=== PATIENT | female | born 1970 | race Caucasian/White ===

== ENCOUNTER 2025-08-15 17:46 | Emergency (ER) | payer OTHER ==
--- NOTE | 2025-08-15 18:32 | RAD REPORT ---
EXAMINATION: Ct Stroke Brain Wo Cont CLINICAL INDICATION: Female, 55 years old.STROKE ALERT TECHNIQUE: Axial CT images from the skull base to the vertex without intravenous contrast. Coronal an d sagittal reformatted images were created from the data set. One or more of the following dose reduction techniques were used: Automated exposure control, adjustment of the mA and/or kV according to patient size, and/or iterative reconstruction. Unless otherwise specified, incidental findings do not require dedicated imaging follow-up. [id number]. COMPARISON: 05/21/2025 FINDINGS: INTRACRANIAL: Evolving, now chronic left frontal lobe cortical infarct. No acute large vascular hali tory infarct. No hydrocephalus. No mass effect or midline shift. No significant white matter disease. VASCULATURE: No visualized abnormalities in the arteries or dural venous sinuses. SCALP/SKULL: No calvarial fracture identified. No acute soft tissue abnormality. SINUSES: The visualized paranasal sinuses are mostly clear. No significant mastoid fluid. IMPRESSION: No acute intracranial abnormality. Evolving, now chronic left frontal lobe cortical infarct. No new i nfarcts identified. The findings were communicated to Paras Baker on 08/15/2025 6:29 PM.
[2025-08-15 18:40] LABS: Absolute Lymphocytes (CBC) 2.0 K/uL (0.7-4.9); Hematocrit 40.9 % (36.0-45.0); Hemoglobin 14.1 g/dL (12.0-15.0); MCH 32.4 pg (27.0-35.0); MCHC 34.4 g/dL (32.0-36.0); MCV 94.2 fL (80-100); MPV 8.1 fL (7.6-11.3); Nucleated RBC Absolute Count 0.0 (0-0); Nucleated Red Blood Cells % 0.1 % (0-0); RBC Red Blood Cell Count 4.35 M/uL (3.86-4.86); White Blood Count 6.40 thou/uL (4.3-10.9)
[2025-08-15] MEDS ORDERED: FOLIC ACID 5 MG/ML VIAL ONE (18:45)
--- NOTE | 2025-08-15 18:45 | RAD REPORT ---
EXAMINATION: Neck Angio CLINICAL INDICATION: Female, 55 years old. NUMBNESS TECHNIQUE: Axial CT images were obtained from the aortic arch to the skull base after intravenous con trast utilizing angiographic protocol with 3D post-processing (maximum intensity projection images, volume rendered images and/or shaded surface rendered images). One or more of the following dose redu ction techniques were used: Automated exposure control, adjustment of the mA and/or kV according to patient size, and/or iterative reconstruction. Unless otherwise specified, incidental findings do not require dedicated imaging follow-up. [id number]. NASCET criteria used. Mild 0-49% stenosis Moderate 50-69% stenosis Severe 70-99% stenosis COMPARISON: 05/21/2025 FINDINGS: AORTA: Normal RIGHT: - CCA: No flow limiting stenosis (>= 50%). No dissection. - ICA: Atherosclerotic changes but no flow limiting stenosis. - ECA: No flow limiting stenosis (>= 50%). No dissection. LEFT: - CCA: No flow limiting stenosis (>= 50%). No dissection. Patent left CCA/ICA stent - ICA: No flow limiting stenosis (>= 50%). No dissection. Patent left CCA/ICA stent - ECA: No flow limiting stenosis (>= 50%). No dissection. VERTEBRAL: Left dominant. Both patent. SOFT TISSUE: No significant neck soft tissue abnormalities. The visualized lung apices are clear. 3D images confirm these findings. IMPRESSION: No arterial dissection or stenosis identified within the neck. Patent left carotid stent.
[2025-08-15] MEDS ORDERED: NA CHLORIDE 0.9% 1,000 ML ONE (18:46)
[2025-08-15 18:53] LABS: PT Prothrombin Time 10.5 SECONDS (10-13.0); PTT, Activated Partial Thromb 32.7 SECONDS (27.2-37.4); Protime INR 0.93
--- NOTE | 2025-08-15 18:53 | RAD REPORT ---
EXAMINATION: Head angio CLINICAL INDICATION: Female, 55 years old. NUMBNESS TECHNIQUE: Axial CT images were obtained through the head after intravenous contrast utilizing angiog raphic protocol with 3D post-processing (maximum intensity projection images, volume rendered images and/or shaded surface rendered images). One or more of the following dose reduction technique s were used: Automated exposure control, adjustment of the mA and/or kV according to patient size, and/or iterative reconstruction. Unless otherwise specified, incidental findings do not require dedic ated imaging follow-up. COMPARISON: 05/21/2025 FINDINGS: RIGHT: ICA: No aneurysm, stenosis, or occlusion. NIXON: No aneurysm, stenosis, or occlusion. MCA: No aneurysm, stenosis, or occlusion. GLASS EMBOSSER: No aneurysm, stenosis, or occlusion. LEFT: ICA: No aneurysm, stenosis, or occlusion. NIXON: No aneurysm, stenosis, or occlusion. MCA: High-grade focal stenosis though patent anterior branch of the left MCA (M2 segment). GLASS EMBOSSER: No aneurysm, stenosis, or occlusion. Vertebrobasilar: Left dominant vertebral artery. Patent basilar artery. 3D images confirm these findings. IMPRESSION: High-grade proximal stenosis of the left MCA inferior division anterior branch, proximal M2 segment. This was previously occluded but now this appears stenotic.. No large vessel occlusion or aneurysm.
[2025-08-15 19:03] LABS: ALT/SGPT 40 U/L (13-56); AST/SGOT 25 U/L (15-37); Albumin 3.4 g/dL (3.4-5.0); Albumin/Globulin Ratio 1.0 (1.1-1.8); Alkaline Phosphatase 154 U/L (45-117); Anion Gap 6.8 mEq/L (5.0-15.0); BUN Blood Urea Nitrogen 12 mg/dL (7-18); Globulin 3.5 g/dL (2.3-3.5); Glucose Level 112 mg/dL (74-106); Magnesium 2.1 mg/dL (1.6-2.4); Potassium 3.8 mEq/L (3.5-5.1); Troponin High Sensitivity 4.7 pg/mL (<58.9)
[2025-08-15 19:04] LABS: Bilirubin Indirect, Calculated 0.2 mg/dL (0.2-0.8)
--- NOTE | 2025-08-15 19:04 | RAD REPORT ---
EXAM: Chest Single View HISTORY: 55 years Female right side facial numbness COMPARISON: 05/21/2025 FINDINGS: LUNGS/PLEURA: The lungs are clear. No pleural effusions or pneumothorax. No pulmonary edema. CARDIAC/MEDIASTINUM: The cardiac silhouette is within normal limits. UPPER ABDOMEN: No significant abnormality. BONES: No acute abnormality. LINES/TUBES/OTHER: N/A IMPRESSION: No evidence of acute cardiopulmonary disease.
--- NOTE | 2025-08-15 20:20 | ER ---
Nurse's Notes [facility] Name: Sanam Haider Age: 55 yrs Sex: Female : 1970 Arrival Date: 08/15/2025 Time: 17:46 Bed 13 Private MD: Diagnosis: Paresthesia of skin;Dizziness and giddiness Presentation: 08/15 18:29 Chief complaint: Patient states: RT FACIAL NUMBNESS, RT ARM NUMBNESS AND DIZZINESS THAT dd2 STARTED AT 10PM LAST NIGHT, WENT AWAY. OCCURRED AGAIN TODAY AT NOON AND 4:30 PM. PT REPORTS CVA IN MAY WITH STENTS PLACED IN LT CAROTID. Coronavirus screen: At this time, the client does not indicate any symptoms associated with coronavirus-19. Ebola Screen: No symptoms or risks identified at this time. Initial Sepsis Screen: Does the patient meet any 2 criteria? No. Patient's initial sepsis screen is negative. Does the patient have a suspected source of infection? No. Patient's initial sepsis screen is negative. Risk Assessment: Do you want to hurt yourself or someone else? Patient reports no desire to harm self or others. Onset of symptoms was August 14, 2025 at 22:00. 18:29 Method Of Arrival: Ambulatory dd2 18:29 Acuity: YESSI 2 dd2 Triage Assessment: 18:29 General: Appears uncomfortable, Behavior is calm, cooperative, appropriate for age. dd2 Pain: Complains of pain in HEAD. 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 - Infectious Disease History:: Denies. - Social history:: Smoking status: unknown. Screenin:10 [facility] ED Fall Risk Assessment (Adult) History of falling in the last 3 months, af3 including since admission No falls in past 3 months (0 pts) Confusion or Disorientation No (0 pts) Intoxicated or Sedated No (0 pts) Impaired Gait No (0 pts) Mobility Assist Device Used No (0 pt) Altered Elimination No (0 pt) Score/Fall Risk Level 0 - 2 = Low Risk Oriented to surroundings, Maintained a safe environment, Educated pt \T\ family on fall prevention, incl call for assistance when getting out of bed. Abuse screen: Denies threats or abuse. Denies injuries from another. Nutritional screening: No deficits noted. Tuberculosis screening: No symptoms or risk factors identified. Assessment: 18:07 General: Appears in no apparent distress. comfortable, well groomed, well developed, af3 Behavior is calm, cooperative, appropriate for age. 18:07 Pain: Denies pain. af3 18:07 Neuro: Level of Consciousness is awake, alert, obeys commands, Oriented to person, af3 place, time, situation, Appropriate for age. Neuro: Reports numbness in face-right side. Cardiovascular: Patient's skin is warm and dry. Respiratory: Airway is patent Respiratory effort is even, unlabored, Respiratory pattern is regular, symmetrical. 19:15 Pain: Denies pain. Neuro: Level of Consciousness is awake, alert, obeys commands, ss12 Oriented to person, place, time, situation, Denies weakness blurred vision numbness headache. Cardiovascular: Denies chest pain, Capillary refill < 3 seconds Patient's skin is warm and dry. Respiratory: No deficits noted. Airway is patent Respiratory effort is even, unlabored, Respiratory pattern is regular, symmetrical. GI: No deficits noted. No signs and/or symptoms were reported involving the gastrointestinal system. : No deficits noted. No signs and/or symptoms were reported regarding the genitourinary system. EENT: No deficits noted. No signs and/or symptoms were reported regarding the EENT system. 19:15 General: Appears in no apparent distress. comfortable, Behavior is calm, cooperative, ss12 quiet. Derm: No deficits noted. No signs and/or symptoms reported regarding the dermatologic system. Skin is intact, Skin is dry, Skin is pink, warm \T\ dry. normal. 19:45 Reassessment: Patient appears in no apparent distress at this time. No changes from ss12 previously documented assessment. Patient is alert, oriented x 3, equal unlabored respirations, skin warm/dry/pink. Neuro: Level of Consciousness is awake, alert, obeys commands, Oriented to person, place, time, situation, Appropriate for age Denies weakness blurred vision numbness headache. 20:50 Reassessment: Pt refused to be hospitalized and the labs for lipid profile and ss12 magnesium ordered by hospitalist were refused by the patient. Vital Signs: 18:29 BP 101 / 67; Pulse 58; Resp 16; Temp 98.2; Pulse Ox 98% on R/A; dd2 19:12 BP 100 / 58; Pulse 71; Resp 18; Pulse Ox 98% on R/A; af3 19:15 BP 103 / 77; Pulse 64; Resp 16 S; Pulse Ox 98% on R/A; ss12 19:38 BP 103 / 65; Pulse 60; Resp 16 S; Pulse Ox 98% on R/A; ss12 20:00 BP 105 / 74; Pulse 51; Resp 16; Pulse Ox 96% on R/A; ss12 20:30 BP 128 / 84; Pulse 58; Resp 16; Pulse Ox 98% on R/A; ss12 Hatch Coma Score: 19:15 Eye Response: spontaneous(4). Motor Response: obeys commands(6). Verbal Response: ss12 oriented(5). Total: 15. 19:38 Eye Response: spontaneous(4). Motor Response: obeys commands(6). Verbal Response: ss12 oriented(5). Total: 15. NIH Stroke Scale Scores: 18:20 NIHSS Score: 1 cp ED Course: 17:48 Patient arrived in ED. mr 18:01 [facility] cp 18:02 Colette Shetty MD is Attending Physician. cp 18:07 Silvia No, IVORY is Primary Nurse. af3 18:07 Patient has correct armband on for positive identification. Bed in low position. Call af3 light in reach. Provided Education on: call light use . 18:07 No provider procedures requiring assistance completed. af3 18:24 CT Stroke Brain w/o Contrast In Process Unspecified. EDMS 18:29 Arm band placed on right wrist. dd2 18:30 CT Head Angio In Process Unspecified. EDMS 18:30 CT Neck Angio In Process Unspecified. EDMS 18:31 Triage completed. dd2 18:32 Inserted saline lock: 22 gauge in left antecubital area, using aseptic technique. Blood dd2 collected. Flushed with 10 mL NS. 18:48 Stroke CXR 1 View In Process Unspecified. EDMS 20:19 Jayesh Pichardo, RN is Hospitalizing Provider. cp 20:55 IV discontinued, intact, bleeding controlled, No redness/swelling at site. Pressure ss12 dressing applied. Administered Medications: 18:52 Drug: NS 0.9% IV 1000 ml IV at 1 bolus Per protocol; to be given as a bolus over 60 af3 minutes Route: IV; Rate: 1 bolus; Site: left antecubital; 20:00 Follow up: IV Status: Completed infusion; IV Intake: 1000ml [facility] 18:52 Drug: foLIC Acid IVPB 1 mg IVPB once Route: IVPB; Site: left antecubital; af3 20:57 Follow up: Response: No adverse reaction; IV Status: Completed infusion 12 Medication: 18:07 VIS not applicable for this client. af3 Intake: 20:00 IV: 1000ml; Total: 1000ml. 12 Outcome: 20:19 Decision to Hospitalize by Provider. cp 20:34 Discharge ordered by MD. cp 20:55 Discharged to home ambulatory, [facility] 20:55 Condition: stable 20:55 Discharge instructions given to patient, family, Instructed on discharge instructions, follow up and referral plans. Demonstrated understanding of instructions, follow-up care, 20:56 Patient left the ED. 12 NIH Stroke Scale - NIH Stroke Score Date: 08/15/2025 Time: 18:20 Total Score = 1 10. Dysarthria (speech clarity - read or repeat words) - 0(Normal) 11. Extinction and Inattention (visual/tactile/auditory/spatial/personal) - 0(No abnormality) 1a. Level of Consciousness (LOC) - 0(Alert) 1b. Level of Consciousness (LOC) (Month \T\ Age) - 0(Both) 1c. LOC Commands (Open \T\ Closes Eyes/Employee Benefits Coordinator) - 0(Both) 2. Best Gaze (Lateral Gaze Paresis) - 0(Normal) 3. Visual Field Loss - 0(No visual loss) 4. Facial Palsy - 0(Normal) 5a. Left Arm: Motor (10-second hold) - 0(No drift) 5b. Right Arm: Motor (10-second hold) - 0(No drift) 6a. Left Leg: Motor (5-second hold - always test supine) - 0(No drift) 6b. Right Leg: Motor (5-second hold - always test supine) - 0(No drift) 7. Limb Ataxia (finger/nose \T\ heel/maynard - test with eyes open) - 0(Absent) 8. Sensory Loss (pinprick arms/legs/face) - 1(Mild to moderate loss) 9. Best Language: Aphasia (description/naming/reading) - 0(No aphasia) Initials: cp Addendum: 18:58 Addendum: Other [place] Swallow Evaluation completed at 1858, pt passed. Swallowed kb3 without issue. notified. Signatures: Dispatcher [employer] EDMS Neha Jara, Reg Reg mr Baker Paras, Kaylie Kirby PA-C, cp, RN RN kb3 Silvia No RN RN af3 WILLIAM TOLEDO RN RN dd2 Kolby Jarrett RN RN ss12 Corrections: (The following items were deleted from the chart) 20:35 20:33 Neuro: Level of Consciousness is awake, alert, obeys commands, Oriented ss12 to person, place, time, situation, Denies weakness blurred vision numbness headache ss12 20:37 20:33 General: Appears in no apparent distress. comfortable, Behavior is calm, ss12 cooperative, quiet, ss12 20:37 20:33 Pain: Denies pain. ss12 ss12 20:37 20:33 Neuro: Level of Consciousness is awake, alert, obeys commands, Oriented ss12 to person, place, time, situation, Denies weakness blurred vision numbness headache ss12 20:37 20:33 Cardiovascular: Denies chest pain, Capillary refill < 3 seconds Patient's ss12 skin is warm and dry. ss12 20:37 20:33 Respiratory: No deficits noted. Airway is patent Respiratory effort is ss12 even, unlabored, Respiratory pattern is regular, symmetrical, ss12 20:37 20:33 GI: No deficits noted. No signs and/or symptoms were reported involving ss12 the gastrointestinal system. ss12 20:37 20:33 : No deficits noted. No signs and/or symptoms were reported regarding ss12 the genitourinary system. ss12 20:37 20:33 EENT: No deficits noted. No signs and/or symptoms were reported regarding ss12 the EENT system. ss12 20:37 20:33 Derm: No deficits noted. No signs and/or symptoms reported regarding the ss12 dermatologic system. Skin is intact, Skin is dry, Skin is pink, warm \T\ dry. normal, ss12 20:58 19:30 Response: No adverse reaction ss12 ss12 08/16 00:27 00:26 Reassessment: ss12 ss12
--- NOTE | 2025-08-15 20:20 | EDPHYS ---
Physician Documentation [facility] Name: Sanam Haider Age: 55 yrs Sex: Female : 1970 Arrival Date: 08/15/2025 Time: 17:46 Bed 13 Private MD: ED Physician Colette Shetty HPI: 08/15 18:10 This 55 yrs old Female presents to ER via Unassigned with complaints of Numbness Of cp Face, Numbness Of Arm, Dizziness. 18:10 The patient's problem is reported as right side of face. Onset: The symptoms/episode cp began/occurred today, 1630. Duration: The episode is continuous. 18:10 Context: occurred while the patient was driving. Associated signs and symptoms: cp Pertinent positives: dizziness, Pertinent negatives: abdominal pain, chest pain. Severity of symptoms: in the emergency department the symptoms have improved mildly. 18:10 Patient is a 55-year-old female with past medical history significant for hypertension. cp Patient also reports having a stroke here in May 2025. Patient presents to the emergency department and reports that last night around 10:00 she started having some dizziness felt the right side of her face going numb. This persisted but she went to bed and when she woke up this morning she felt normal. Patient reports later on in the morning at about 10:00 she started having some right-sided facial numbness that lasted about 1 to 2 hours and resolved. She reports while driving home after work at about 1630 she started having right sided facial numbness so she proceeded to the emergency department. 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 - Infectious Disease History:: Denies. - Social history:: Smoking status: unknown. ROS: 18:15 Neuro: Positive for dizziness, right side facial numbness, Negative for altered mental cp status, gait disturbance, headache, syncope, near syncope, weakness, 18:15 Eyes: Negative for injury, pain, redness, and discharge, cp 18:15 Constitutional: Negative for body aches, chills, fever, poor PO intake, 18:15 Cardiovascular: Negative for chest pain, 18:15 Abdomen/GI: Negative for abdominal pain, vomiting, diarrhea, constipation, 18:15 All other systems are negative, Exam: 18:20 Constitutional: The patient appears in no acute distress, alert, awake, cp non-diaphoretic, non-toxic, well developed, well nourished, 18:20 Head/face: Exam is negative for obvious evidence of injury or deformity, swelling, cp tenderness, 18:20 Eyes: Periorbital structures: appear normal, Pupils: equal, round, and reactive to light and accomodation, Extraocular movements: intact throughout, Conjunctiva: normal, no exudate, no injection, Sclera: no appreciated abnormality, Lids and lashes: appear normal, bilaterally, 18:20 ENT: External ear(s): Nose: is normal, Mouth: Lips: moist, Oral mucosa: moist, Posterior pharynx: Airway: no evidence of obstruction, patent, 18:20 Neck: ROM/movement: pain, is not appreciated, limited range of motion, is not appreciated, 18:20 Chest/axilla: Inspection: normal, 18:20 Cardiovascular: Rate: bradycardic, Rhythm: regular, Edema: is not appreciated, JVD: is not appreciated, 18:20 Respiratory: the patient does not display signs of respiratory distress, Respirations: normal, no use of accessory muscles, no retractions, labored breathing, is not present, Breath sounds: are clear throughout, no decreased breath sounds, no stridor, no wheezing, 18:20 Abdomen/GI: Inspection: abdomen appears normal, Palpation: abdomen is soft and non-tender, in all quadrants, 18:20 Back: pain, is absent, ROM is normal, 18:20 Neuro: Orientation: to person, place \T\ time. Mentation: is normal, Motor: moves all fours, strength is normal, Sensation: numbness, that is mild, of the right side of face, 18:41 ECG was reviewed by the Attending Physician. cp 19:07 Radiologist reports: no acute findings cp Vital Signs: 18:29 BP 101 / 67; Pulse 58; Resp 16; Temp 98.2; Pulse Ox 98% on R/A; dd2 19:12 BP 100 / 58; Pulse 71; Resp 18; Pulse Ox 98% on R/A; af3 19:15 BP 103 / 77; Pulse 64; Resp 16 S; Pulse Ox 98% on R/A; ss12 19:38 BP 103 / 65; Pulse 60; Resp 16 S; Pulse Ox 98% on R/A; ss12 20:00 BP 105 / 74; Pulse 51; Resp 16; Pulse Ox 96% on R/A; ss12 20:30 BP 128 / 84; Pulse 58; Resp 16; Pulse Ox 98% on R/A; ss12 NIH Stroke Scale Scores: 18:20 NIHSS Score: 1 Farshad Coma Score: 19:15 Eye Response: spontaneous(4). Motor Response: obeys commands(6). Verbal Response: ss12 oriented(5). Total: 15. 19:38 Eye Response: spontaneous(4). Motor Response: obeys commands(6). Verbal Response: ss12 oriented(5). Total: 15. MDM: 18:02 Medical Screening Exam initiated 18:30 Differential diagnosis: CVA, TIA, metabolic disorder, drug effects. 18:39 ED course: Consult with Dr. Song who does not recommend TNK at this time. Will cp consult and recommends admission. Recommends fluid bolus, folic acid and dual antiplatelet therapy. 19:10 Data reviewed: vital signs, nurses notes, lab test result(s), EKG, radiologic studies, cp CT scan, plain films, I have discussed the patient's presentation/case with the attending Emergency Department Physician; and as a result, I will admit patient. 19:10 Management of patient was discussed with the following: Hospitalist: MR Britozenon PRINCE consulted for admission and agrees after discussion. 20:34 I considered the following discharge prescriptions or medication management in the emergency department Medications were administered in the Emergency Department. See JAN. 20:34 Independent interpretation of the following test(s) in the Emergency Department EKG: See my EKG interpretation above X-Ray: My interpretation is chest xray negative for infiltrates. Counseling: I had a detailed discussion with the patient and/or guardian regarding the historical points, exam findings, and any diagnostic results supporting the discharge/admit diagnosis, lab results, radiology results, the need for further work-up and treatment in the hospital. Response to treatment: the patient's symptoms have resolved after treatment, numbness resolved. Refusal of service: The patient/guardian displays adequate decision making capability and despite a detailed discussion of alternatives, benefits, risks, and consequences refuses: Admission to the hospital for further work-up and treatment. ED course: Patient requesting discharge to home after discussion of today's testing and recommendation to admission. Patient understands she can return at anytime for reevaluation. 08/15 18:06 Order name: Basic Metabolic Panel; Complete Time: 19:05 cp 08/15 19:05 Interpretation: Normal except: CL 110; GLUC 112. cp 08/15 18:06 Order name: CBC with Diff; Complete Time: 19:05 cp 08/15 18:06 Order name: Hepatic Function; Complete Time: 19:05 cp 08/15 19:06 Interpretation: Normal except: ALK 154; A/G 1.0. cp 08/15 18:06 Order name: High Sensitivity Troponin; Complete Time: 19:05 cp 08/15 18:06 Order name: Magnesium; Complete Time: 19:05 cp 08/15 18:06 Order name: Protime (+inr); Complete Time: 19:05 cp 08/15 18:06 Order name: Ptt, Activated; Complete Time: 19:05 cp 08/15 18:48 Order name: Glucose, Ancillary Testing; Complete Time: 19:05 EDMS 08/15 18:06 Order name: CT Head Angio; Complete Time: 19:05 cp 08/15 18:06 Order name: CT Neck Angio; Complete Time: 19:05 cp 08/15 18:06 Order name: CT Stroke Brain w/o Contrast; Complete Time: 19:05 cp 08/15 18:06 Order name: Stroke CXR 1 View; Complete Time: 19:05 cp 08/15 18:06 Order name: EKG; Complete Time: 18:07 cp 08/15 18:06 Order name: Accucheck; Complete Time: 18:38 cp 08/15 18:06 Order name: Cardiac monitoring; Complete Time: 18:38 cp 08/15 18:06 Order name: EKG - Nurse/Tech; Complete Time: 18:38 cp 08/15 18:06 Order name: IV Saline Lock; Complete Time: 18:38 cp 08/15 18:06 Order name: Labs collected and sent; Complete Time: 18:38 cp 08/15 18:06 Order name: NPO; Complete Time: 18:38 cp 08/15 18:06 Order name: O2 Per Protocol; Complete Time: 18:38 cp 08/15 18:06 Order name: O2 Sat Monitoring; Complete Time: 18:38 cp 08/15 18:06 Order name: Stroke Swallow Screen; Complete Time: 18:58 cp EC:41 Rate is 66 beats/min. Rhythm is regular. CA interval is normal. QRS interval is normal. cp QT interval is normal. T waves are Inverted in lead aVR. Interpreted by me. Reviewed by me. Administered Medications: 18:52 Drug: NS 0.9% IV 1000 ml IV at 1 bolus Per protocol; to be given as a bolus over 60 af3 minutes Route: IV; Rate: 1 bolus; Site: left antecubital; 20:00 Follow up: IV Status: Completed infusion; IV Intake: 1000ml ss12 18:52 Drug: foLIC Acid IVPB 1 mg IVPB once Route: IVPB; Site: left antecubital; af3 20:57 Follow up: Response: No adverse reaction; IV Status: Completed infusion ss12 Disposition: 08/16 19:11 Chart complete. cp Disposition Summary: 08/15/25 20:34 Discharge Ordered Notes: Location: Home(08/15/25 20:34) cp Problem: new(08/15/25 20:34) cp Symptoms: have improved(08/15/25 20:34) cp Condition: Stable(08/15/25 20:34) cp Diagnosis - Paresthesia of skin(08/15/25 20:34) cp - Dizziness and giddiness(08/15/25 20:34) cp Followup: cp - With: Private Physician - When: 2 - 3 days - Reason: Recheck today's complaints Discharge Instructions: - Discharge Summary Sheet cp - Dizziness cp - Paresthesia cp - Ischemic Stroke cp - Transient Ischemic Attack cp - Vertigo cp - Aspirin and Your Heart cp Forms: - Medication Reconciliation Form cp - Antibiotic Education cp - Prescription Opioid Use cp - Patient Portal Instructions cp - Leadership Thank You Letter cp Critical care time excluding procedures: 19:11 Critical care time: Bedside Care: 10 minutes, Consultation: 25 minutes, Family cp Intervention: 7 minutes. Total time: 42 minutes NIH Stroke Scale - NIH Stroke Score Date: 08/15/2025 Time: 18:20 Total Score = 1 10. Dysarthria (speech clarity - read or repeat words) - 0(Normal) 11. Extinction and Inattention (visual/tactile/auditory/spatial/personal) - 0(No abnormality) 1a. Level of Consciousness (LOC) - 0(Alert) 1b. Level of Consciousness (LOC) (Month \T\ Age) - 0(Both) 1c. LOC Commands (Open \T\ Closes Eyes/Client Technical Support Associate) - 0(Both) 2. Best Gaze (Lateral Gaze Paresis) - 0(Normal) 3. Visual Field Loss - 0(No visual loss) 4. Facial Palsy - 0(Normal) 5a. Left Arm: Motor (10-second hold) - 0(No drift) 5b. Right Arm: Motor (10-second hold) - 0(No drift) 6a. Left Leg: Motor (5-second hold - always test supine) - 0(No drift) 6b. Right Leg: Motor (5-second hold - always test supine) - 0(No drift) 7. Limb Ataxia (finger/nose \T\ heel/maynard - test with eyes open) - 0(Absent) 8. Sensory Loss (pinprick arms/legs/face) - 1(Mild to moderate loss) 9. Best Language: Aphasia (description/naming/reading) - 0(No aphasia) Initials: cp Signatures: Dispatcher [employer] EDMS Paras Baker PA-C PA-C cp Fry, Ashley RN RN af3 Kolby Jarrett RN ss12 Corrections: (The following items were deleted from the chart) 08/15 18:07 18:07 BASIC METABOLIC PANEL+C.LAB.BRZ ordered. EDMS EDMS 18:07 18:07 CBC+H.LAB.BRZ ordered. EDMS EDMS 18:07 18:07 HEPATIC FUNCTION+C.LAB.BRZ ordered. EDMS EDMS 18:07 18:07 Troponin High Sensitivity+C.LAB.BRZ ordered. EDMS EDMS 18:07 18:07 MAGNESIUM+C.LAB.BRZ ordered. EDMS EDMS 18:07 18:07 PROTIME (+INR)+COAG.LAB.BRZ ordered. EDMS EDMS 18:07 18:07 PTT, ACTIVATED+COAG.LAB.BRZ ordered. EDMS EDMS 20:33 20:19 Inpatient Admission cp cp 20:33 20:19 Jayesh Pichardo cp cp 20:33 20:19 Telemetry/MedSurg (Inpatient) cp cp 20:33 20:19 Stable cp cp : 20:19 new cp cp : 20:19 have improved cp cp : 20:19 Standard cp cp : 20:19 cp cp : 20:19 Paresthesia of skin cp cp : 20:19 Dizziness and giddiness cp cp
[2025-08-15 21:09] VITALS: TEMP 98.2
[2025-08-15 21:17] VITALS: BP 128/84; O2SAT 98
== END 2025-08-15 20:56 | disposition home or self-care (01) ==
LOC: ER 17:46
DX: R20.2 Paresthesia of skin (principal); R42 Dizziness and giddiness; I10 Essential (primary) hypertension; R29.701 NIHSS score 1
CPT/HCPCS: 96365; 93005; 85025; 80048; 36415; 83735; 85610; 82947; 80076; 85730; 84484; 70496; 70498; 70450; 71045; 99284; 96366; Q9967; J7030